=== PATIENT | female | born 1955 | race African-American/Black ===

== ENCOUNTER 2017-08-26 21:19 | Emergency (ER) | payer OTHER ==
--- NOTE | 2017-08-26 21:24 | PDOC ---
Rapid Medical Evaluation Time Seen by Provider: 08/26/17 21:22 Medical Evaluation: 08/26/17 21:22 I have performed a brief in-person evaluation of this patient. The patient presents with a chief complaint of: pain to L groin x 6 weeks 10/ pain, "feels like spikes", denies urinary/bowel problems Pertinent physical exam findings: N/A I have ordered the following: UA, UCx The patient will proceed to the ED for further evaluation. Discharge Disposition - Diagnosis Left inguinal pain - Referrals - Patient Instructions - Post Discharge Activity
[2017-08-26 21:29] VITALS: PULSE 71; TEMP 97.8; BMI 35.6
[2017-08-26 22:18] LABS: URINE APPEARANCE CLOUDY; URINE BILIRUBIN NEGATIVE (NEGATIVE); URINE BLOOD NEGATIVE (NEGATIVE); URINE COLOR YELLOW; URINE GLUCOSE (UA) NEGATIVE (NEGATIVE); URINE KETONE NEGATIVE (NEGATIVE); URINE NITRITE NEGATIVE (NEGATIVE); URINE PROTEIN NEGATIVE (NEGATIVE)
[2017-08-26 22:22] LABS: URINE LEUK ESTERASE 1+ (NEGATIVE)
[2017-08-26 22:23] LABS: EPI CELLS MANY /HPF (FEW); URINE MUCUS FEW
--- NOTE | 2017-08-26 23:46 | PDOC ---
History of Present Illness - General Chief Complaint: Pain Stated Complaint: PAIN Time Seen by Provider: 08/26/17 21:22 History Source: Patient - History of Present Illness Initial Comments: 08/27/17 01:58 62 year old female with left lower abdominal pain x 6 weeks with worsening pain today. denies NVD. + BM. denies fever/ chills. Past History - Past Medical History Allergies/Adverse Reactions: Allergies Allergy/AdvReac Type Severity Reaction Status Date / Time No Known Allergies Allergy Verified 08/27/17 00:21 Home Medications: Ambulatory Orders NK [No Known Home Medication] 08/27/17 - Suicide/Smoking/Psychosocial Hx Smoking History: Never smoked Have you smoked in the past 12 months: No Information on smoking cessation initiated: No Hx Alcohol Use: No Drug/Substance Use Hx: No *Physical Exam - Vital Signs Last Vital Signs Temp Pulse Resp BP Pulse Ox 97.8 F 71 18 137/80 99 08/26/17 21:24 08/26/17 21:24 08/26/17 21:24 08/26/17 21:24 08/26/17 21:24 - Physical Exam General Appearance: Yes: Appropriately Dressed Respiratory/Chest: positive: Lungs Clear, Normal Breath Sounds Neurologic: positive: Other (;eft sided weakness) ED Treatment Course - LABORATORY CBC & Chemistry Diagram: 08/27/17 00:37 08/27/17 00:37 - ADDITIONAL ORDERS Additional order review: Laboratory Results 08/26/17 21:49 Urine Color Yellow Urine Appearance Cloudy Urine pH 5.0 Ur Specific [place] 1.030 Urine Protein Negative Urine Glucose (UA) Negative Urine Ketones Negative Urine Blood Negative Urine Nitrite Negative Urine Bilirubin Negative Urine Urobilinogen 2.0 H Ur Leukocyte Esterase 1+ H Urine WBC (Auto) 5 Urine RBC (Auto) 3 Ur Epithelial Cells Many Urine Mucus Few *DC/Admit/Observation/Transfer Diagnosis at time of Disposition: Left inguinal pain Inguinal hernia bilateral, non-recurrent Qualifiers: Obstruction and gangrene presence: with obstruction but without gangrene Recurrence: not specified as recurrent Qualified Code(s): K40.00 - Bilateral inguinal hernia, with obstruction, without gangrene, not specified as recurrent - Discharge Dispostion Disposition: HOME - Referrals Referrals: Martine Carrizales MD [Primary Care Provider] - Brent Sánchez MD [Staff Physician] - - Patient Instructions Printed Discharge Instructions: Groin Hernia -- Adult Additional Instructions: follow up with your doctor as soon as possible. return to the ER if symptoms worsen. - Post Discharge Activity
--- NOTE | 2017-08-27 00:43 | PDOC ---
*Physical Exam - Vital Signs Last Vital Signs Temp Pulse Resp BP Pulse Ox 97.8 F 71 18 137/80 99 08/26/17 21:24 08/26/17 21:24 08/26/17 21:24 08/26/17 21:24 08/26/17 21:24 ED Treatment Course - ADDITIONAL ORDERS Additional order review: Laboratory Results 08/26/17 21:49 Urine Color Yellow Urine Appearance Cloudy Urine pH 5.0 Ur Specific [place] 1.030 Urine Protein Negative Urine Glucose (UA) Negative Urine Ketones Negative Urine Blood Negative Urine Nitrite Negative Urine Bilirubin Negative Urine Urobilinogen 2.0 H Ur Leukocyte Esterase 1+ H Urine WBC (Auto) 5 Urine RBC (Auto) 3 Ur Epithelial Cells Many Urine Mucus Few Medical Decision Making - Medical Decision Making 08/27/17 00:42 agree with care from JESSICA Barraza *DC/Admit/Observation/Transfer Diagnosis at time of Disposition: Left inguinal pain - Referrals Referrals: Martine Carrizales MD [Primary Care Provider] - - Patient Instructions - Post Discharge Activity
[2017-08-27] MEDS ORDERED: morphine CARPU-JECT 4 MG/1 ML DISP.SYRIN IVPUSH ONE (00:50)
[2017-08-27 00:51] LABS: BASO % 0.9 % (0-2.0); EOS % 6.4 % (0-4.5); HEMATOCRIT 39.6 % (32.4-45.2); HEMOGLOBIN 13.6 GM/dL (10.7-15.3); LYMPH % 44.8 % (8-40); MCHC 34.4 g/dl (32.0-36.0); MEAN CELL VOLUME 95.9 fl (80-96); MEAN PLT VOLUME 8.9 fl (7.5-11.1); MONO % 7.6 % (3.8-10.2); NEUT % 40.3 % (42.8-82.8); PLATELET COUNT 248 K/MM3 (134-434); RBC 4.14 M/mm3 (3.60-5.2); RDW 12.7 % (11.6-15.6); WHITE BLOOD COUNT 5.7 K/mm3 (4.0-10.0)
[2017-08-27] MEDS ORDERED: MORPHINE SULFATE 10 MG/1 ML *VIAL ONE (00:51)
[2017-08-27 01:16] LABS: INR 0.97 (0.82-1.09)
[2017-08-27 01:19] LABS: ACTIVATED PTT 31.8 SECONDS (26.9-34.4)
[2017-08-27 01:33] LABS: ALBUMIN 3.7 g/dl (3.4-5.0); ALK PHOS 68 U/L (45-117); ANION GAP 9 (8-16); BILIRUBIN,TOTAL 0.3 mg/dL (0.2-1.0); BLOOD UREA NITROGEN 18 mg/dL (7-18); CALCIUM 8.9 mg/dL (8.5-10.1); CHLORIDE 105 mmol/L (98-107); CO2 28 mmol/L (21-32); CREATININE 0.7 mg/dL (0.55-1.02); GLUCOSE,RANDOM 80 mg/dL (74-106); POTASSIUM 3.7 mmol/L (3.5-5.1); SGOT/AST 15 U/L (15-37); SGPT/ALT 15 U/L (12-78); SODIUM 142 mmol/L (136-145); TOT PROT 6.7 g/dl (6.4-8.2)
[2017-08-27 02:18] VITALS: BP 131/69
== END 2017-08-27 02:18 | disposition home or self-care (01) ==
LOC: JER 21:19
PROC: 3E033NZ Introduction of Analgesics, Hypnotics, Sedatives into Peripheral Vein, Percutaneous Approach (ICD-10-PCS; principal; 2017-08-26)
DX: K40.00 Bilateral inguinal hernia, with obstruction, without gangrene, not specified as recurrent (principal)
CPT/HCPCS: 36415; 74176-TC; 80053; 81003; 81015; 85025; 85610; 85730; 86850; 86900; 86901; 87086; 99282-25